=== PATIENT | female | born 1955 | race Caucasian/White ===

== ENCOUNTER 2019-12-18 07:08 | Day surgery (SDC) | payer MEDICAID, OTHER ==
[~2019-12-18] VITALS: Ht 170.2 cm; Wt 93.0 kg
[2019-12-18 07:37] VITALS: BP 141/88
[2019-12-18] MEDS ORDERED: PLEASE ENTER ALLERGIES MC SCH (08:00)
[2019-12-18] MEDS ORDERED: SODIUM CHLORIDE 0.9% 1,000 ML IV SCH (08:00)
[2019-12-18] MEDS ORDERED: DULO30CA2 PO (08:04)
[2019-12-18] MEDS ORDERED: LISI-170 PO (08:04)
[2019-12-18] MEDS ORDERED: LIDOCAINE 1%, 10ML ONE (09:01)
[2019-12-18] MEDS ORDERED: MIDAZOLAM 1 MG/ML, 5ML ONE (09:08)
[2019-12-18] MEDS ORDERED: FENTANYL PF 100 MCG/2ML ONE ×2 (09:08)
[2019-12-18] MEDS ORDERED: NALOXONE 1 MG/ML, 2ML ONE (09:08)
[2019-12-18] MEDS ORDERED: FLUMAZENIL 0.1 MG/1 ML, 5ML ONE (09:08)
== END 2019-12-18 11:45 | disposition home or self-care (01) ==
LOC: OUT 07:08 → EDSTATUS 09:00 → OUT 11:45
PROVIDERS: ATTEND Internal Medicine Gastroenterology
DX: K73.9 Chronic hepatitis, unspecified (principal); K75.81 Nonalcoholic steatohepatitis (NASH); I10 Essential (primary) hypertension; G47.30 Sleep apnea, unspecified; F32.9 Major depressive disorder, single episode, unspecified; F41.9 Anxiety disorder, unspecified; Z79.899 Other long term (current) drug therapy; Z82.3 Family history of stroke
CPT/HCPCS: 47000; 77012; 88307; 88313; 99156; 99157; J2250; J3010; J2310